=== PATIENT | male | born 1945 ===

== ENCOUNTER 2017-11-26 10:54 | Day surgery (SDC) | payer OTHER ==
--- NOTE | 2017-11-25 22:38 | EKG ---
Test Date: 2017-11-25 Test Time: 17:01:39 [employer] Plasma Etcher: RADHA MEASUREMENT RESULTS: Intervals: Rate: 69 MO: 206 QRSD: 112 QT: 388 QTc: 415 [place]: P: 15 MO: 206 QRS: 49 T: 48 INTERPRETIVE STATEMENTS: Normal sinus rhythm Normal ECG No previous ECG available for comparison Electronically Signed On 11-25-17 22:38:20 CDT by Michael Daniels
[2017-11-26] MEDS ORDERED: Ringers Lactate 1,000 ML IV ONE ×2 (11:15→13:35)
[2017-11-26] MEDS ORDERED: FENTANYL CITR 100 MCG/2 ML ONE ×2 (12:06→13:48)
[2017-11-26] MEDS ORDERED: LIDOCAINE 1% MPF 5 ML VIAL ONE (12:06)
[2017-11-26] MEDS ORDERED: PROPOFOL 200 MG/20 ML VIAL IV ONE (12:06)
[2017-11-26] MEDS ORDERED: MIDAZOLAM HCL 2 MG/2 ML INJ ONE (12:06)
[2017-11-26] MEDS ORDERED: DIPHENHYDRAMINE 50 MG/ML VIAL ONE (12:07)
[2017-11-26] MEDS ORDERED: LIDOCAINE 1% W/EPI 1:100,000 MDV 50 ML VIAL ONE (12:09)
[2017-11-26] MEDS ORDERED: BUPIVACA 0.5%/EPI 0.0005%/PF 10 ML VIAL ONE (12:09)
[2017-11-26] MEDS ORDERED: OXYMETAZOLINE HCL 0.05% 30ML NAS ONE (12:45)
[2017-11-26] MEDS ORDERED: EPINEPHRINE/PF 1 MG/ML AMP ONE (12:45)
[2017-11-26] MEDS ORDERED: Phenylephrine HCl 10 MG/ML 1 ML VIAL ONE (12:54)
[2017-11-26] MEDS ORDERED: NS 0.9% VIAL 10 ML ONE ×2 (12:56→13:31)
[2017-11-26] MEDS ORDERED: EPHEDRINE SULF 50 MG/5 ML SYR ONE (13:30)
[2017-11-26] MEDS ORDERED: MINERAL OIL, LITE 10 ML VIAL ONE (14:10)
[2017-11-26] MEDS ORDERED: MUPIROCIN 2% OINT 22GM TUBE TOP ONE (14:44)
--- NOTE | 2017-11-27 01:44 | OP ---
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 Peripheral margins negative. Deep lianna in pending. Indication For Procedure: Everardo Ramos is a 72-year-old who presented with a lesion in the libby of t he left ear, which demonstrated a rolled border and central ulceration. The clinical appearance was consistent with basal cell carcinoma and due to the location, excision with frozen section and approp riate reconstruction in the operating room was recommended. Description Of Procedure: The patient was brought to the operating room. He was placed under genera l anesthesia via laryngeal mask airway. The left ear was examined, and the lateral canal and libby were injected with 0.5% Marcaine with epinephrine. The planned skin graft site of the left neck was likewise injected superficially and a total of 5 mL was used. The left ear, face, and neck were prep ped with Betadine and draped in a sterile fashion. The lesion was identified and a narrow gross lianna in around the lesion was designed. A #15 blade scalpel was used to incise full-thickness through the skin. A suture was placed at the superior most aspect and the skin was elevated off the conchal car tilage. Specimen was sent to Pathology for frozen section. The peripheral margins were negative, bu t the deep margin was significantly positive. In consultation with the pathologist, I discussed that dehisced deep margin was composed of the conchal cartilage and that frozen section of the cartilage would be difficult. The pathologist recommended permanent section for the cartilage to aid in best p ossible pathologic diagnosis. The conchal cartilage was then cut at the edge of the skin margin and elevated off the posterior skin. The true margin was marked with a surgical marker and sent to Patho logy for permanent section. Hemostasis at the surgical site was achieved using needlepoint Bovie jarad ctrocautery. The defect was 2 x 2.2 cm and composed the small area at the meatus with lateral ear ca nal as well as the majority of the libby. After packing the area, a skin graft was harvested from t he left neck. A 2 x 5 cm fusiform skin graft was designed parallel to an existing skin crease. Scal pel and Bovie were used to harvest a full-thickness skin graft. The graft was set aside and the dono r site was closed in a layered fashion using 4-0 Vicryl deep sutures to approximate the wound edges a nd a 5-0 plain suture for the skin. The skin graft was then applied to the left conchal defect and s ecured in an interrupted fashion with 3-0 nylon sutures. The edges of the skin graft were trimmed to conform to the surgical defect. A running 5-0 plain was then used to secure the inferior, lateral, and superior aspects of the skin graft. The medial aspect was difficult to close due to its location within the meatus and the skin edges were left open in this area to heal in situ. A bolster compose d of Xeroform and cotton soaked in mineral oil was packed into the conchal bowl. The 3-0 nylon sutur es were used to secure the bolster to the ear. The areas were cleaned and dried. Triple antibiotic ointment was applied to the incision, and the area was dressed with gauze and tape. The procedure wa s concluded and the patient was returned to care of Anesthesia for awakening and extubation in the op erating room, which proceeded without difficulty. Complications: None. Disposition: The patient's was given instructions regarding care of the wounds, and the patient will follow up in 11 days for removal of the bolster and assessment of healing. SHIRIN/MYLENE Voice ID: [id number] Report ID: [id number]
== END 2017-11-26 15:55 | disposition home or self-care (01) ==
LOC: OR 10:54
PROVIDERS: ATTEND Otolaryngology
PROC: 0HR3X73 Replacement of Left Ear Skin with Autologous Tissue Substitute, Full Thickness, External Approach (ICD-10-PCS; principal; 2017-11-26 12:30)
DX: C44.229 Squamous cell carcinoma of skin of left ear and external auricular canal (principal); Z87.891 Personal history of nicotine dependence
CPT/HCPCS: 11643; 15260; 88305 ×2; 88331; 88332; 93005; J2250; J2370; J3010 ×2; J0171